=== PATIENT | male | born 1945 | race Caucasian/White ===

== ENCOUNTER 2023-07-28 10:53 | Emergency (ER) | payer OTHER, MEDICARE ==
[2023-07-28 11:25] LABS: ANION GAP 6.2 meq/L (7-15); BLOOD UREA NITROGEN,BUN 17 mg/dL (7-18); CALCIUM 8.8 mg/dL (8.5-10.1); CARBON DIOXIDE,CO2 29.8 mmol/L (21.0-32.0); CHLORIDE,CL 105 mmol/L (98-107); CREATININE 0.77 mg/dL (0.51-1.17); GLUCOSE RANDOM 94 mg/dL (70-99); POTASSIUM,K 4.7 mmol/L (3.5-5.1); SODIUM,NA 141 mmol/L (136-145)
[2023-07-28 11:26] LABS: ESTIMATED GFR 91 mL/min (>=60)
[2023-07-28 11:29] LABS: HEMATOCRIT 28.2 % (39.0-49.0); HEMOGLOBIN 9.2 g/dL (13.1-16.8); MEAN CORPUSCULAR HEMOGLOBIN 35.9 pg (28.2-33.3); MEAN CORPUSCULAR HGB CONC 32.6 g/dL (31.7-36.0); MEAN CORPUSCULAR VOLUME 110.2 fL (84.0-98.0); PLATELET COUNT,PLT 460 K/uL (150-350); RED BLOOD CELL COUNT 2.56 M/uL (4.33-5.41); RED CELL DISTRIBUTION WIDTH 17.8 % (11.2-14.1); WHITE BLOOD CELL COUNT,WBC 7.2 K/uL (4.0-10.2)
[2023-07-28] MEDS: oxyCODONE 5 MG Tab PO ONE (11:38)
[2023-07-28] MEDS: Sodium Chloride 0.9% 500 ML IV SCH (11:40)
[2023-07-28 11:49] LABS: LYMPHOCYTES PERCENT MAN 32; MONOCYTES PERCENT MAN 6; SEG NEUTROPHILS PERCENT MAN 62
[2023-07-28] MEDS: Morphine 2 MG/ML SYRINGE IVPUSH ONE (12:51)
[2023-07-28] MEDS: Ondansetron 4 MG/2 ML SDV IVPUSH ONE (12:51)
[2023-07-28] MEDS: Gabapentin 300 MG Cap PO ONE (12:51)
== END 2023-07-28 14:00 ==
LOC: LL.ED 10:53
DX: I96 Gangrene, not elsewhere classified (principal); I95.2 Hypotension due to drugs; Z87.891 Personal history of nicotine dependence; Z79.899 Other long term (current) drug therapy
CPT/HCPCS: 36415; 80048; 85025; 86140; 96361; 96374; 96375; 99284; 99284-25; A9270-GY; J2270; J2405; J7040

== ENCOUNTER 2023-12-26 09:25 | Emergency (ER) | payer MEDICARE, OTHER ==
[2023-12-26 10:11] LABS: HEMOGLOBIN 7.6 g/dL (13.1-16.8); MEAN CORPUSCULAR HEMOGLOBIN 35.7 pg (28.2-33.3); MEAN CORPUSCULAR HGB CONC 32.9 g/dL (31.7-36.0); MEAN CORPUSCULAR VOLUME 108.5 fL (84.0-98.0); PLATELET COUNT,PLT 489 K/uL (150-350); RED BLOOD CELL COUNT 2.13 M/uL (4.33-5.41); RED CELL DISTRIBUTION WIDTH 21.1 % (11.2-14.1); WHITE BLOOD CELL COUNT,WBC 5.6 K/uL (4.0-10.2)
[2023-12-26 10:38] LABS: ALANINE AMINOTRANSFERASE,ALT 9 U/L (12-78); ALBUMIN 3.4 g/dL (3.4-5.0); ALKALINE PHOSPHATASE 48 IU/L (46-116); ASPARTATE AMNIOTRANSFERASE,AST 12 U/L (15-37); BILIRUBIN TOTAL 1.4 mg/dL (0.2-1.0); BLOOD UREA NITROGEN,BUN 27 mg/dL (7-18); CALCIUM 8.8 mg/dL (8.5-10.1); CARBON DIOXIDE,CO2 36.8 mmol/L (21.0-32.0); CHLORIDE,CL 101 mmol/L (98-107); GLUCOSE RANDOM 101 mg/dL (70-99); POTASSIUM,K 3.6 mmol/L (3.5-5.1); PRO B-TYPE NATRIUR PEPT,BNPPRO 8677 pg/mL (0-125); PROTEIN TOTAL,TP 6.5 g/dL (6.4-8.2); SODIUM,NA 145 mmol/L (136-145)
[2023-12-26 10:39] LABS: ANION GAP 10.8 meq/L (7-15); ESTIMATED GFR 86 mL/min (>=60)
[2023-12-26 10:52] LABS: HEMATOCRIT 23.1 % (39.0-49.0)
[2023-12-26 10:55] LABS: BAND PERCENT MAN 6; EOSINOPHILS PERCENT MAN 1; LYMPHOCYTES PERCENT MAN 50; MONOCYTES PERCENT MAN 13; SEG NEUTROPHILS PERCENT MAN 30
[2023-12-26] MEDS: Potassium Bicarbonate/Cit Ac 20 MEQ Effervescent Tab PO ONE (11:41)
[2023-12-26] MEDS: Bumetanide 2.5 MG/10 ML MDV IVPUSH ONE ×3 (11:41→15:32)
[2023-12-26] MEDS: Sodium Chloride 0.9% 10 ML Syringe FLUSH PRN (11:43)
[2023-12-26] MEDS: Acetaminophen 325 MG Tab PO ONE (16:08)
[2023-12-26] MEDS: Acetaminophen 325 MG Tab ONE (16:17)
== END 2023-12-26 16:15 ==
LOC: LL.ED 09:25
DX: I50.9 Heart failure, unspecified (principal); Z79.82 Long term (current) use of aspirin; Z79.899 Other long term (current) drug therapy; Z79.51 Long term (current) use of inhaled steroids; Z79.02 Long term (current) use of antithrombotics/antiplatelets
CPT/HCPCS: 36415; 71046; 80053; 83880; 84484; 85025; 93005; 96374; 99285; A9270; J3490; 93010; 99284